=== PATIENT | male | born 1990 | race Caucasian/White ===

== ENCOUNTER 2018-02-23 19:03 | Emergency (ER) | payer OTHER, SELFPAY ==
[2018-02-23 19:10] VITALS: BP 119/79; PULSE 77; RESP 16; TEMP 36.6; O2SAT 99
--- NOTE | 2018-02-23 20:04 | ED_ITS ---
HPI - Male Genitourinary <Sarah Jefferson PA-C - Last Filed: 02/23/18 21:27> General Chief complaint: Urogenital-Male Stated complaint: TESTICULAR PAIN Time Seen by Provider: 02/23/18 19:33 Source: patient Mode of arrival: ambulatory Limitations: no limitations History of Present Illness HPI Narrative: This 27 year old male states he was sent here by PCP office due to possible testicular mass or problem. He states that he does repetitive heavy lifting at work and last week started to notice some pressure in his left testicle. After he had been working for a while and lifting today, this became more uncomfortable. He states it is better with sitting and pulling his legs in , worse with standing and lifting. He states that he has not had any urinary symptoms, no discharge or STD concerns, no fever and is otherwise feeling well. He states his PCP was not available but saw someone there who was concerned about urgent problem and thought he might need imaging so came here. He denies any other new symptoms such as abdominal pain Related Data Home Medications Medication Instructions Recorded Confirmed Aller-Viviana 1 tab PO DAILY 02/23/18 02/23/18 Allergies Allergy/AdvReac Type Severity Reaction Status Date / Time pollen extracts Allergy Verified 02/23/18 19:15 Review of Systems <Sarah Jefferson PA-C - Last Filed: 02/23/18 21:27> Review of Systems All systems reviewed & are unremarkable except as noted in HPI and below Exam <Sarah Jefferson PA-C - Last Filed: 02/23/18 21:27> Narrative Exam Narrative: GENERAL APPEARANCE: Patient sitting comfortably, appears well HEENT: PERRL, EOMI, no scleral icterus NECK: Supple LUNGS: Clear to auscultation bilaterally. HEART: Rate and rhythm regular, normal S1 and S2, no S3 or S4. ABDOMEN: Soft, nontender, nondistended, bowel sounds present x 4 quadrants, no masses palpable, no hepatosplenomegaly. EXTREMITIES: No edema DERMATOLOGIC: No jaundice or exanthem NEUROLOGIC: Alert and oriented with normal speech, gait and coordination : The testicles appear symmetric. There is no palpable testicular mass however there is an increased area of increased prominence at the superior posterior pole (not attached) that is mildly tender. No erythema. No palpable inguinal or ventral mass. No penile d/c or exanthem Initial Vital Signs Initial Vital Signs: Vital Signs Temperature 97.9 F 02/23/18 19:10 Pulse Rate 77 02/23/18 19:10 Respiratory Rate 16 02/23/18 19:10 Blood Pressure 119/79 02/23/18 19:10 Pulse Oximetry 99 02/23/18 19:10 <Param Taylor MD - Last Filed: 02/24/18 06:58> Initial Vital Signs Initial Vital Signs: Vital Signs Temperature 97.9 F 02/23/18 19:10 Pulse Rate 77 02/23/18 19:10 Respiratory Rate 16 02/23/18 19:10 Blood Pressure 119/79 02/23/18 19:10 Pulse Oximetry 99 02/23/18 19:10 Course <Sarah Jefferson PA-C - Last Filed: 02/23/18 21:27> Additional Information: Patient was sent here for possible imaging, however is concerned about getting home tonight and would prefer to delay if possible. I explained I do not palpate any mass within the testicle nor does he have appearance of urgent surgical issue such as testicular torsion. Exam is most consistent with a varicocele or perhaps epididymal cyst. This is in the setting repetitive heavy lifting, and I explained he may have a hernia as well although I cannot palpate that today. I explained if he prefers reasonable to follow-up and image as an outpatient provided he returns if any acutely worsening symptoms, and he prefers this plan. He is going to be off work and on vacation and and will elevate the testicle and follow up with his PCP Vital Signs - 8 hr 02/23/18 19:10 Temperature 97.9 F Pulse Rate 77 Respiratory Rate 16 Blood Pressure 119/79 Pulse Oximetry 99 <Param Taylor MD - Last Filed: 02/24/18 06:58> Vital Signs - 8 hr 02/23/18 19:10 Temperature 97.9 F Pulse Rate 77 Respiratory Rate 16 Blood Pressure 119/79 Pulse Oximetry 99 Discharge Plan Departure Patient Disposition: Home, Self-Care Clinical Impression: Left testicular pain Discharge Date/Time: 02/23/18 20:00 Interventions: ED Discharge Assessment Last Done: 02/23/18 20:41 Instructions: DI for Testicular Pain Activity Restrictions/Additional Instructions: Please return as we talked about if you have acutely worsening symptoms such as severe pain, or new symptoms with this such as fever. Otherwise, please remain off of work, elevate the testicle. I suggest trying an anti-inflammatory such as [id number] ibuprofen or Aleve for a few days to see if this is helpful. You may have a hernia given what your describing about your work, though I could not easily find that today. You do not appear to have a mass in your testicle. There is some enlargement above the testicle, which typically would be from a swollen vein or could be from another benign source. Please follow-up with your PCP for recheck this week and you can determine whether to do an ultrasound at that point since you have decided to go home and monitor this tonight. Prescriptions: No Action Aller-Viviana 1 tab PO DAILY RF: 0 Referrals: Sherman Espinoza MD [Non-Staff] - <Param Taylor MD - Last Filed: 02/24/18 06:58> Cosign ED Attending Cosjacobyature Attestation: I was present in the ER at the time of this patient's care, I was available for consultation or to see the patient if need be. I agree with the content of the medical record and the disposition.
== END 2018-02-23 20:00 | disposition home or self-care (01) ==
PROVIDERS: Emergency Provider Internal Medicine; PCP Family Medicine
DX: N50.819 Testicular pain, unspecified (principal)
CPT/HCPCS: 99282

== ENCOUNTER 2019-09-09 14:18 | Emergency (ER) | payer OTHER, SELFPAY ==
[2019-09-09 14:26] VITALS: BP 113/73; PULSE 53; RESP 20; TEMP 36.9; O2SAT 100
[2019-09-09 15:46] LABS: Add Manual Diff / Slide Review NO; Basophils Absolute Auto 100 /uL (0-100); Basophils Percent Auto 0.3 % (0-2); Eosinophils Absolute Auto 0 /uL (0-450); Hematocrit 45.8 % (41-53); Hemoglobin 15.7 g/dL (13.5-17.5); Lymphocytes Absolute Auto 1000 /uL (1100-4500); Lymphocytes Percent Auto 5.5 % (25-40); Mean Corpuscular HGB Conc 34.2 % (30-36); Mean Corpuscular Hemoglobin 31.4 PG (26-34); Mean Corpuscular Volume 91.9 fL (80-100); Monocytes Absolute Auto 500 /uL (0-900); Monocytes Percent Auto 2.6 % (3-14); Neutrophils Absolute Auto 15800 /uL (1500-7000); Neutrophils Percent Auto 91.6 % (50-75); Platelet Count 322 X10^3/uL (150-400); Prothrombin Time 11.4 SECONDS (10.1-12.7); Red Blood Cell Count 4.99 X10^6/uL (4.5-5.9); Red Cell Distribution Width 13.1 % (11.6-14.8); White Blood Cell Count 17.3 X10^3/uL (4.5-11.0)
[2019-09-09 15:49] LABS: PTT Partial Thromboplastin Tim 25 SECONDS (26.4-36.2)
[2019-09-09 15:51] LABS: Alanine Aminotransferase 28 IU/L (<50); Albumin 5.3 g/dL (3.5-5.0); Albumin Globulin Ratio 1.5 (1.0-2.8); Alkaline Phosphatase 61 U/L (38-126); Aspartate Aminotransferase 28 IU/L (17-59); BUN Creatinine Ratio 18.6 (6-22); Bilirubin Total 1.5 mg/dL (0.2-1.3); Blood Urea Nitrogen 13 mg/dL (9-20); Calcium 10.4 mg/dL (8.4-10.2); Carbon Dioxide 25 mmol/L (22-32); Chloride 103 mmol/L (98-107); Estimated Glomerular Filt Rate > 60.0 mL/min (>60); Globulin 3.5 g/dL (1.7-4.1); Glucose 121 mg/dL (70-100); HEMOLYSIS 16 (0-50); Lipase 47 U/L (23-300); Potassium 4.6 mmol/L (3.4-5.1); Sodium 139 mmol/L (137-145); Total Protein 8.8 g/dL (6.3-8.2)
--- NOTE | 2019-09-09 17:54 | ED.ABDPAIN ---
HPI - Abdominal Pain <MING Lewis - Last Filed: 09/09/19 21:10> General Chief Complaint: Abdominal Pain Stated Complaint: nausea, vomiting Time Seen by Provider: 09/09/19 17:38 History of Present Illness HPI narrative: 29-year-old male with a history of chronic vomiting presents to the emergency department complaining of continued vomiting since this morning. Patient states he has taken Zofran and Phenergan which she was given but has continued to vomit. He last vomited about 3 hours ago and then again a few minutes ago. Patient states his vomiting episodes usually resolve after taking Phenergan and smoking weed but we would and Phenergan have not helped at this time. He also reports he has a history of a cough for the past 3 days and reports sick contacts. Patient states he has associated moderate abdominal pain and his umbilicus, he states this is common with his vomiting episodes however usually after he vomits it resolves. He states the pain is decreased after last episode of vomiting but still remains. Patient also reports when he stands up quickly he feels lightheaded. Patient denies chest pain, shortness of breath, fevers at home, abdominal surgery vision changes, or other concerns. Patient was seen evaluated clinic on [facility], he was sent here for further evaluation. Related Data Home Medications Medication Instructions Recorded Confirmed Aller-Viviana 1 tab PO DAILY 02/23/18 02/23/18 Allergies Allergy/AdvReac Type Severity Reaction Status Date / Time pollen extracts Allergy Verified 02/23/18 19:15 Review of Systems <MING Lewis - Last Filed: 09/09/19 21:10> Review of Systems Narrative: REVIEW OF SYSTEMS: GENERAL: Denies fever, chills, malaise, or wt. loss. HENT: No head trauma, sore throat, or dysphagia. EYES: No loss of vision, double vision, eye pain, or irritation. CARDIOVASCULAR: No chest pain, palpitations, or orthopnea. RESPIRATORY: No shortness of breath or cough. GASTROINTESTINAL: Complains of umbilical abdominal pain and nausea, see HPI GENITOURINARY: No flank pain. MUSCULOSKELETAL: No pain, weakness, or trauma. INTEGUMENTARY: No rash, lesions, or pruritus. NEURO: No numbness, tingling, memory loss, confusion, or headaches. PSYCH: No behavior or mood changes. Patient History <MING Lewis - Last Filed: 09/09/19 21:10> Medical History GERD (gastroesophageal reflux disease) (Chronic) Social History Smoking Status: Current every day smoker substance use type: marijuana Smoking Status: Current every day smoker alcohol intake frequency: 0-2 drinks per day Substance Use Type: marijuana Exam <MING Lewis - Last Filed: 09/09/19 21:10> Initial Vital Signs Initial Vital Signs: Vital Signs Temperature 98.4 F 09/09/19 14:26 Pulse Rate 53 L 09/09/19 14:26 Respiratory Rate 20 09/09/19 14:26 Blood Pressure 113/73 09/09/19 14:26 Pulse Oximetry 100 09/09/19 14:26 PHYSICAL EXAMINATION: GENERAL: Well groomed, alert, and cooperative. Answers questions promptly and appropriately. Vital signs noted. HENT: Normocephalic, atraumatic. Hearing intact. Oral mucosa is pink and moist. EYES: Conjunctiva pink, sclera white, no periorbital swelling. CARDIOVASCULAR: S1 and S2 sounds normal. Regular rate and rhythm, no murmurs, clicks, or bruits. No pedal edema. RESPIRATORY: Normal respiratory rate, trachea midline, airway patent. No stridor, nasal flaring or accessory muscle use. Lungs are clear in all anderson without wheeze, rhonchi, or crackles. Occasional productive cough noted throughout examination. GASTROINTESTINAL: Bowel sounds normoactive. Slight tenderness to periumbilical region. No rebound tenderness. GENITALURINARY: No flank tenderness. MUSCULOSKELETAL: Normal gait and coordination. Equal tone and mass bilaterally. EXTREMITIES: CMS intact, no pedal edema. SKIN: Warm, dry, soft, appropriate color for ethnicity. No lesions, rashes, or wounds to visualized areas. NEURO: Alert and Oriented X 3. Good coordination. No ataxia, or sensory deficits, or cognitive issues. PSYCH: Appropriate affect and mood. <Riana Sexton DO - Last Filed: 09/10/19 05:52> Initial Vital Signs Initial Vital Signs: Vital Signs Temperature 98.4 F 01/30/20 14:26 Pulse Rate 53 L 09/09/19 14:26 Respiratory Rate 20 09/09/19 14:26 Blood Pressure 113/73 09/09/19 14:26 Pulse Oximetry 100 09/09/19 14:26 Course <Cathy AlanisMING rosado - Last Filed: 09/09/19 21:10> Course Course Narrative: After administration of Ativan and fluids, patient states he started to feel better. Patient was given a GI cocktail as well as Toradol which significantly improved his pain. Patient was able to eat and drink p.o. liquids without vomiting. Patient was discharged with return precautions. Orders Ordered: Discontinued Medications Al Hydrox/Mg Hydrox/Simethicone 20 ml/ Lidocaine HCl 15 ml 0 ml PO NOW ONE Stop: 09/09/19 20:47 Last Admin: 09/09/19 20:52 Dose: 30 ml Documented by: SARINA Sodium Chloride (Normal Saline 0.9%) 1,000 mls @ 1,000 mls/hr IV BOLUS ONE Stop: 09/09/19 19:10 Last Infusion: 09/09/19 19:37 Dose: 0 mls/hr Documented by: Admin: 09/09/19 18:37 Dose: 1,000 mls/hr Documented by: SARINA Ketorolac Tromethamine (Toradol) 30 mg IV NOW ONE Stop: 09/09/19 20:44 Last Admin: 09/09/19 20:52 Dose: 30 mg Documented by: SARINA Lorazepam (Ativan) 0.5 mg IV NOW ONE Stop: 09/09/19 18:11 Last Admin: 09/09/19 18:38 Dose: 0.5 mg Documented by: SARINA Vital Signs Vital signs: Vital Signs - 8 hr 09/09/19 14:26 09/09/19 18:28 Temperature 98.4 F Pulse Rate 53 L 54 L Respiratory Rate 20 Blood Pressure 113/73 Blood Pressure [Right Arm] 111/57 L Pulse Oximetry 100 98 <Riana Sexton DO - Last Filed: 09/10/19 05:52> Orders Ordered: Discontinued Medications Al Hydrox/Mg Hydrox/Simethicone 20 ml/ Lidocaine HCl 15 ml 0 ml PO NOW ONE Stop: 09/09/19 20:47 Last Admin: 09/09/19 20:52 Dose: 30 ml Documented by: SARINA Sodium Chloride (Normal Saline 0.9%) 1,000 mls @ 1,000 mls/hr IV BOLUS ONE Stop: 09/09/19 19:10 Last Infusion: 09/09/19 19:37 Dose: 0 mls/hr Documented by: Admin: 09/09/19 18:37 Dose: 1,000 mls/hr Documented by: SARINA Ketorolac Tromethamine (Toradol) 30 mg IV NOW ONE Stop: 09/09/19 20:44 Last Admin: 09/09/19 20:52 Dose: 30 mg Documented by: SARINA Lorazepam (Ativan) 0.5 mg IV NOW ONE Stop: 09/09/19 18:11 Last Admin: 09/09/19 18:38 Dose: 0.5 mg Documented by: SARINA Vital Signs Vital signs: Vital Signs - 8 hr 09/09/19 14:26 09/09/19 18:28 Temperature 98.4 F Pulse Rate 53 L 54 L Respiratory Rate 20 Blood Pressure 113/73 Blood Pressure [Right Arm] 111/57 L Pulse Oximetry 100 98 MDM - Abdominal Pain <MING Lewis - Last Filed: 09/09/19 21:10> Medical Records Attestation: I reviewed the patient's medical records. Lab Data Attestation: I reviewed the patient's lab results. Result diagrams: 09/09/19 15:31 09/09/19 15:31 Labs: Lab Results 09/09/19 09/09/19 09/09/19 Range/Units 15:31 15:31 15:31 WBC 17.3 H (4.5-11.0) X10^3/uL RBC 4.99 (4.5-5.9) X10^6/uL Hgb 15.7 (13.5-17.5) g/dL Hct 45.8 (41-53) % MCV 91.9 (80-100) fL MCH 31.4 (26-34) PG MCHC 34.2 (30-36) % RDW 13.1 (11.6-14.8) % Plt Count 322 (150-400) X10^3/uL Neut % (Auto) 91.6 H (50-75) % Lymph % (Auto) 5.5 L (25-40) % Er[place] % (Auto) 2.6 L (3-14) % Eos % (Auto) 0.0 L (2-4) % Baso % (Auto) 0.3 (0-2) % Neut # (Auto) 17392 H (1243-7941) /uL Lymph # (Auto) 1000 L (8630-1562) /uL [place] # (Auto) 500 (0-900) /uL Eos # (Auto) 0 (0-450) /uL Baso # (Auto) 100 (0-100) /uL PT 11.4 (10.1-12.7) SECONDS INR 1.0 (0.9-1.3) APTT 25 L (26.4-36.2) SECONDS Sodium 139 (137-145) mmol/L Potassium 4.6 (3.4-5.1) mmol/L Chloride 103 (98-107) mmol/L Carbon Dioxide 25 (22-32) mmol/L BUN 13 (9-20) mg/dL Creatinine 0.70 (0.66-1.25) mg/dL Estimated GFR > 60.0 (>60) mL/min BUN/Creatinine Ratio 18.6 (6-22) Glucose 121 H (70-100) mg/dL Calcium 10.4 H (8.4-10.2) mg/dL Total Bilirubin 1.5 H (0.2-1.3) mg/dL AST 28 (17-59) IU/L ALT 28 (<50) IU/L Alkaline Phosphatase 61 (38-126) U/L Total Protein 8.8 H (6.3-8.2) g/dL Albumin 5.3 H (3.5-5.0) g/dL Globulin 3.5 (1.7-4.1) g/dL Albumin/Globulin Ratio 1.5 (1.0-2.8) Lipase 47 (23-300) U/L Imaging Data US - abdomen: Radiologist's Impression: [address] [address] Ultrasound Report Signed Patient: Sudhir Schmitt DMR#: [id number] : 1990Acct:[id number] Age/Sex: te of Service: 09/09/19 Loc: ED Accession Number: [id number] Procedure: US abdomen limited Ordering Provider: Cathy Kamara PROCEDURE: US ABDOMEN LIMITED INDICATIONS: ELEV BILI, RUQ TECHNIQUE: Real-time scanning was performed of the abdominal and retroperitoneal organs, with image documentation. COMPARISON: None. FINDINGS: Liver: Liver is normal in size and homogeneous in echotexture. Echogenic focus in the right lobe measuring 9 mm. Gallbladder: Nondilated. No stones or sludge. Normal gallbladder wall thickness. No pericholecystic fluid. Negative sonographic Bobby's sign. Biliary ducts: Intrahepatic bile ducts are non-dilated. Extrahepatic bile duct caliber measures 4 mm. Normal is 6-7 mm or less in diameter, or 10 mm or less post-cholecystectomy. Pancreas: Visualized portions of the pancreas are sonographically normal. No right kidney hydronephrosis. IMPRESSION: 1. No acute cholecystitis. No gallstones. 2. No biliary ductal dilatation. 3. Echogenic focus in the right lobe liver measuring 9 mm. This most likely represents a small hemangioma. However, this is not conclusive on ultrasound. This can be further evaluated with multiphase liver CT or MRI on a nonemergent basis. Dictated by: Chacho Bolden M.D. on 09/09/2019 at 20:08 Approved by: Chacho Bolden M.D. on 09/09/2019 at 20:[address] [facility] Narrative Medical decision making narrative: 29-year-old male with a history of chronic vomiting presents emergency department with abdominal pain and vomiting similar to his previous episodes upper they have not resolved after smoking weed in taking Phenergan which is his usual treatment. Ultrasound was performed to rule out any gallbladder etiology due to mildly elevated bilirubin of 1.5. Less likely appendicitis or other acute abdominal etiology as abdominal exam was fairly benign with occasional periumbilical tenderness, no right-sided tenderness or rebound tenderness. Patient was able tolerate p.o. fluids and food. Patient had an elevated white count of 17.3 which I suspect may be related to his upper respiratory tract infection that he has had for the past few days with a cough. Patient was discharged with strict return precautions. He was encouraged to follow up with his primary care provider in 1-2 weeks for further evaluation. Patient agreed with plan of care verbalized understanding. <Riana Sexton, - Last Filed: 09/10/19 05:52> Lab Data Labs: Lab Results 09/09/19 09/09/19 09/09/19 Range/Units 15:31 15:31 15:31 WBC 17.3 H (4.5-11.0) X10^3/uL RBC 4.99 (4.5-5.9) X10^6/uL Hgb 15.7 (13.5-17.5) g/dL Hct 45.8 (41-53) % MCV 91.9 (80-100) fL MCH 31.4 (26-34) PG MCHC 34.2 (30-36) % RDW 13.1 (11.6-14.8) % Plt Count 322 (150-400) X10^3/uL Neut % (Auto) 91.6 H (50-75) % Lymph % (Auto) 5.5 L (25-40) % Er[place] % (Auto) 2.6 L (3-14) % Eos % (Auto) 0.0 L (2-4) % Baso % (Auto) 0.3 (0-2) % Neut # (Auto) 44778 H (9921-9827) /uL Lymph # (Auto) 1000 L (4562-8914) /uL Erath # (Auto) 500 (0-900) /uL Eos # (Auto) 0 (0-450) /uL Baso # (Auto) 100 (0-100) /uL PT 11.4 (10.1-12.7) SECONDS INR 1.0 (0.9-1.3) APTT 25 L (26.4-36.2) SECONDS Sodium 139 (137-145) mmol/L Potassium 4.6 (3.4-5.1) mmol/L Chloride 103 (98-107) mmol/L Carbon Dioxide 25 (22-32) mmol/L BUN 13 (9-20) mg/dL Creatinine 0.70 (0.66-1.25) mg/dL Estimated GFR > 60.0 (>60) mL/min BUN/Creatinine Ratio 18.6 (6-22) Glucose 121 H (70-100) mg/dL Calcium 10.4 H (8.4-10.2) mg/dL Total Bilirubin 1.5 H (0.2-1.3) mg/dL AST 28 (17-59) IU/L ALT 28 (<50) IU/L Alkaline Phosphatase 61 (38-126) U/L Total Protein 8.8 H (6.3-8.2) g/dL Albumin 5.3 H (3.5-5.0) g/dL Globulin 3.5 (1.7-4.1) g/dL Albumin/Globulin Ratio 1.5 (1.0-2.8) Lipase 47 (23-300) U/L Discharge Plan Departure Patient Disposition: Home Clinical Impression: Vomiting Qualifiers: Vomiting type: unspecified Vomiting Intractability: unspecified Nausea presence: with nausea Qualified Code(s): R11.2 - Nausea with vomiting, unspecified Abdominal pain Qualifiers: Abdominal location: periumbilical Qualified Code(s): R10.33 - Periumbilical pain Discharge Date/Time: 09/09/19 21:19 Instructions: DI for Abdominal Pain-Adult Activity Restrictions/Additional Instructions: Thank you for entrusting me with your care today. As discussed, your ultrasound is negative for any acute concerns, there is a small discoloration on your liver noted on ultrasound. This is not the cause of your vomiting but is an incidental finding to note for future scans. Please follow up with your primary care provider in 1-2 weeks for further evaluation. Return emergency department for any new or worsening symptoms such as high fevers, worsening abdominal pain, syncope, or other concerns. Prescriptions: No Action Aller-Viviana 1 tab PO DAILY RF: 0 Referrals: Sherman Espinoza MD [Primary Care Provider] -
--- NOTE | 2019-09-09 18:26 | DI.US.S_ITS ---
PROCEDURE: US ABDOMEN LIMITED INDICATIONS: ELEV BILI, RUQ TECHNIQUE: Real-time scanning was performed of the abdominal and retroperitoneal organs, with image documentation. COMPARISON: None. FINDINGS: Liver: Liver is normal in size and homogeneous in echotexture. Echogenic focus in the right lobe measuring 9 mm. Gallbladder: Nondilated. No stones or sludge. Normal gallbladder wall thickness. No pericholecystic fluid. Negative sonographic Bobby's sign. Biliary ducts: Intrahepatic bile ducts are non-dilated. Extrahepatic bile duct caliber measures 4 mm. Normal is 6-7 mm or less in diameter, or 10 mm or less post-cholecystectomy. Pancreas: Visualized portions of the pancreas are sonographically normal. No right kidney hydronephrosis. IMPRESSION: 1. No acute cholecystitis. No gallstones. 2. No biliary ductal dilatation. 3. Echogenic focus in the right lobe liver measuring 9 mm. This most likely represents a small hemangioma. However, this is not conclusive on ultrasound. This can be further evaluated with multiphase liver CT or MRI on a nonemergent basis. Dictated by: Chacho Bolden M.D. on 09/09/2019 at 20:08 Approved by: Chacho Bolden M.D. on 09/09/2019 at 20:10
[2019-09-09 18:28] VITALS: BP 111/57; PULSE 54; O2SAT 98
[2019-09-09] MEDS: SODIUM CHLORIDE 0.9% 1,000 ML 1000 ML IV (18:37)
[2019-09-09] MEDS: LORazepam 2 MG/ML INJ 0.5 MG IV (18:38)
[2019-09-09] MEDS: KETOROLAC 60 MG/2 ML VIAL 30 MG IV (20:52)
[2019-09-09] MEDS: MAG HYDROX/ALUMINUM/SIMETH SUS 20 ML, LIDOCAINE VISCOUS 2% 15 ML PO (20:52)
--- NOTE | 2019-09-09 21:09 | PC.NURSE ---
apple sauce given,able to tolerate
[2019-09-09 21:18] VITALS: BP 123/68; PULSE 50; O2SAT 98
== END 2019-09-09 21:19 | disposition home or self-care (01) ==
PROVIDERS: Emergency Medicine; Emergency Provider Nurse Practitioner; PCP Family Medicine
DX: R11.2 Nausea with vomiting, unspecified (principal); R10.33 Periumbilical pain; E80.6 Other disorders of bilirubin metabolism
CPT/HCPCS: 36415; 76705; 80053; 83690; 85025; 85610; 85730; 96361; 96374; 96375; 99284; J1885; J2060